=== PATIENT | male | born 1940 | race Caucasian/White ===

== ENCOUNTER 2016-10-24 11:54 | Emergency (ER) | payer MEDICARE, OTHER ==
[~2016-10-24 11:54] MED LIST: ALEVE220 MG; ASPIRIN325 MG; COREG6.25 MG; LIPITOR20 MG; LISINOPRIL5 MG; LOCOID45 GM; NITROSTAT0.4 MG; PLAVIX75 MG; [UNRECOGNIZED DRUG - OTHER]
[2016-10-24] MEDS ORDERED: ASPIRIN EC81 MG PO (12:04)
[2016-10-24] MEDS ORDERED: ATORVASTATIN CA80 M1 PO (12:04)
[2016-10-24] MEDS ORDERED: ZESTRIL5 M1 PO (12:04)
[2016-10-24] MEDS ORDERED: COREG12.5 M1 PO (12:04)
[2016-10-24] MEDS ORDERED: SUPER B COMPLE150 M1 PO (12:05)
[2016-10-24] MEDS ORDERED: PLAVIX75 M1 PO (12:05)
[2016-10-24] MEDS ORDERED: ARTHRITIS PAIN650 M5 PO (12:05)
[2016-10-24] MEDS ORDERED: MULTI VITAMIN1 EAC2 PO (12:06)
[2016-10-24 12:43] LABS: BASO % 0.6 % (0-2); EOS % 7.1 % (0-7); EOSINOPHIL ABSOLUTE COUNT 0.5 tho/cmm (0.0-0.7); HCT-HEMATOCRIT 37.7 % (36.0-53.5); HGB-HEMOGLOBIN 12.5 gm/dl (13.5-17.0); IMMATURE GRANULOCYTES ABSOLUTE 0.01 tho/cmm (0-0.03); IMMATURE GRANULOCYTES PERCENT 0.2 % (0-0.3); LYMPH % 21.4 % (20-45); LYMPH ABSOLUTE COUNT 1.4 tho/cmm (0.8-4.5); MCH (MEAN CORPUSCULAR HGB) 32.3 pg (28.0-32.0); MCHC MEAN CORPUSCULAR HGB CONC 33.2 % (32.0-36.0); MCV (MEAN CELL VOLUME) 97.4 fl (82.0-96.0); MEAN PLATELET VOLUME 11.5 cmc (9.4-12.4); MONO % 5.2 % (0-12); MONOCYTE ABSOLUTE COUNT 0.3 tho/cmm (0.0-1.2); NEUTROPHIL ABSOLUTE COUNT 4.1 tho/cmm (1.6-8.0); NEUTROPHIL-AUTOMATED 4.1 tho/cmm (1.6-8.0); NEUTROPHILS % 65.5 % (40-80); PLATELET COUNT 143 tho/cmm (150-450); RED BLOOD COUNT 3.87 mil/cmm (4.40-5.70); RED CELL DISTRIBUTION WIDTH 13.8 % (12.4-16.4); WHITE BLOOD COUNT 6.3 tho/cmm (4.0-10.0)
[2016-10-24 12:46] LABS: PROTHROMBIN TIME 12.1 SECONDS (9.0-13.6)
[2016-10-24 13:00] LABS: ALB/GLOB RATIO 1.1 (0.8-2.0); ALBUMIN 3.9 g/dl (3.5-5.0); ALKALINE PHOSPHATASE 78 U/L (33-138); ALT/SGPT 26 U/L (12-78); ANION GAP 13 mmol/L (0-20); AST/SGOT 17 U/L (10-40); BILIRUBIN,TOTAL 0.3 mg/dl (0.0-1.5); BLOOD UREA NITROGEN 21 mg/dl (6-24); CARBON DIOXIDE-VENOUS 24 mmol/L (22-32); CHLORIDE 108 mmol/l (96-110); CREATININE 1.61 mg/dl (0.60-1.30); GLUCOSE 119 mg/dL (70-110); POTASSIUM 4.7 mmol/L (3.7-5.1); SODIUM 140 mmol/L (135-145); eGFR VALUE FOR BLACK 48 mL/Min
== END 2016-10-24 13:40 ==
LOC: EDMED 11:54
PROVIDERS: Emergency Medicine
DX: R55 Syncope and collapse (principal); N18.9 Chronic kidney disease, unspecified
CPT/HCPCS: J7030